=== PATIENT | female | born 1940 | race Hispanic/Latino ===

== ENCOUNTER 2017-12-13 08:56 | Observation (INO) | payer BC, MEDICARE ==
[2017-12-13] MEDS ORDERED: Sodium Chloride 0.9% 1,000 ML IV STA (09:29)
[2017-12-13 09:59] LABS: BASO # 0.1 K/uL (0.0-0.2); BASO % 0.7 % (0.0-2.0); EOS % 0.6 % (0.0-4.0); LYMPH # 0.3 K/uL (1.0-4.3); LYMPH % 4.6 % (20.0-40.0); MEAN CELL VOLUME 91.9 fl (81.0-99.0); MEAN CORPUSCULAR HEMOGLOBIN 30.5 pg (27.0-31.0); MEAN CORPUSCULAR HGB CONC 33.1 g/dL (33.0-37.0); MEAN PLATELET VOLUME 9.4 fl (7.2-11.7); MONO # 0.3 K/uL (0.0-0.8); MONO % 4.3 % (0.0-10.0); NEUT # 6.7 K/uL (1.8-7.0); NEUT % 89.8 % (50.0-75.0); PLATELET COUNT 162 K/uL (130-400); RBC 4.26 Mil/uL (3.80-5.20); RED CELL DISTRIBUTION WIDTH 13.1 % (11.5-14.5); WHITE BLOOD COUNT 7.5 K/uL (4.8-10.8)
[2017-12-13 10:02] LABS: PROTHROMBIN TIME 11.2 Seconds (9.8-13.1)
[2017-12-13 10:05] LABS: ALB/GLOB RATIO 1.3 (1.0-2.1); ALBUMIN 3.8 g/dL (3.5-5.0); ALT/SGPT 32 U/L (9-52); AST/SGOT 22 U/L (14-36); BLOOD UREA NITROGEN 16 mg/dl (7-17); CALCIUM 9.8 mg/dL (8.4-10.2); GFR NON-AFRICAN AMERICAN > 60
--- NOTE | 2017-12-13 10:14 | RAD ---
HISTORY: Syncope COMPARISON: 10/17/2012. FINDINGS: LUNGS: The lungs are hyperinflated and there is peribronchial thickening with chronic changes in both lungs. No focal consolidation. PLEURA: No significant pleural effusion identified, no pneumothorax apparent. CARDIOVASCULAR: Normal. OSSEOUS STRUCTURES: No significant abnormalities. VISUALIZED UPPER ABDOMEN: Normal. OTHER FINDINGS: None. IMPRESSION: No active pulmonary disease. COPD.
--- NOTE | 2017-12-13 10:26 | ED PDOC ---
Syncope/Near Syncope/Dizziness Time Seen by Provider: 12/13/17 09:18 Chief Complaint (Nursing): Syncope Chief Complaint (Provider): Syncope History Per: Patient History/Exam Limitations: no limitations Additional Complaint(s): Pt states she took Imodium this AM and one episode of diarrhea, went outside to wait for taxi and had sudden syncopal episode, no prodromal symptoms. Denies CP , palpitations, SOB, BRENNAN, paresthesias, weakness, BRENNAN. Pt c/o nausea at present, no vomiting, no abdominal pain. Past Medical History Reviewed: Nursing Documentation, Vital Signs Vital Signs: Last Vital Signs Temp 98.3 F 12/13/17 09:09 Pulse 56 L 12/13/17 09:09 Resp 16 12/13/17 09:09 BP 116/67 12/13/17 09:09 Pulse Ox 99 12/13/17 09:09 - Medical History PMH: Anemia, HTN - Family History Family History: States: Unknown Family Hx - Living Arrangements Living Arrangements: Alone - Social History Current smoker - smoking cessation education provided: No Alcohol: None - Immunization History Hx Tetanus Toxoid Vaccination: No Hx Influenza Vaccination: No Hx Pneumococcal Vaccination: No - Home Medications Home Medications: Ambulatory Orders Medication Instructions Recorded Aspirin [Ecotrin] 81 mg PO DAILY 12/13/17 Diltiazem HCl [Diltiazem 24Hr ER] 120 mg PO DAILY 12/13/17 Ergocalciferol (Vitamin D2) 50,000 unit PO QWK 12/13/17 [Vitamin D2] Ferrous Sulfate 325 mg PO BID 12/13/17 Losartan [Cozaar] 50 mg PO DAILY 12/13/17 Dicyclomine [Bentyl] 10 mg PO TID #30 cap 12/15/17 Pantoprazole [Protonix] 40 mg PO DAILY #30 ect 12/15/17 - Allergies Allergies/Adverse Reactions: Allergies Allergy/AdvReac Type Severity Reaction Status Date / Time No Known Allergies Allergy Verified 12/13/17 09:09 Review of Systems Constitutional: Negative for: Fever, Chills Eyes: Negative for: Vision Change Cardiovascular: Negative for: Chest Pain, Palpitations Respiratory: Negative for: Cough, Shortness of Breath Gastrointestinal: Positive for: Nausea, Constipation. Negative for: Vomiting, Abdominal Pain, Diarrhea Genitourinary Female: Negative for: Dysuria, Hematuria Musculoskeletal: Negative for: Neck Pain, Back Pain Skin: Negative for: Rash, Lesions Neurological: Negative for: Weakness, Numbness, Incoordination, Change in Speech , Confusion, Seizures, Altered Mental Status, Headache, Dizziness Physical Exam - Reviewed Nursing Documentation Reviewed: Yes Vital Signs Reviewed: Yes - Physical Exam Appears: Positive for: Well, No Acute Distress Head Exam: Negative for: ATRAUMATIC (Superficial abrasion L parietal scalp, no deformity) Skin: Positive for: Normal Color, Warm, Dry Eye Exam: Positive for: Normal appearance, EOMI, PERRL Neck: Positive for: Normal, Painless ROM, Supple. Negative for: Limited ROM, Pain On Movement Of Neck Cardiovascular/Chest: Positive for: Bradycardia. Negative for: Irregularly Irregular Respiratory: Positive for: Normal Breath Sounds. Negative for: Rales, Rhonchi, Wheezing Gastrointestinal/Abdominal: Positive for: Normal Exam, Bowel Sounds, Soft. Negative for: Tenderness Back: Positive for: Normal Inspection, L CVA Tenderness, R CVA Tenderness Extremity: Positive for: Normal ROM, Other (Superficial abrasion L anterior arm) . 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 Negative for: Motor/Sensory Deficits, Aphasia, Facial Droop - Laboratory Results Result Diagrams: 12/14/17 05:55 12/14/17 05:55 - ECG Interpretation Of ECG: Sinus lilo @ 53, IRBBB. O2 Sat by Pulse Oximetry: 99 Pulse Ox Interpretation: Normal Medical Decision Making Medical Decision Makin yo female with syncope. - labs - EKG - CXR - CT head - [facility] Accession No. : [id number] Patient Name / ID : GABRIEL BARNES / [id number] Exam Date : 12/13/2017 09:30:09 ( Approved ) Study Comment : Sex / Age : F / 77Y Creator : Apoorva Mandujano MD Dictator : Apoorva Mandujano MD Installment Loan Collector : Concrete Mixer : Apoorva Mandujano MD Approver2 : Report Date : 12/13/2017 10:13:24 My Comment : HISTORY: Syncope COMPARISON: 10/17/2012. FINDINGS: LUNGS: The lungs are hyperinflated and there is peribronchial thickening with chronic changes in both lungs. No focal consolidation. PLEURA: No significant pleural effusion identified, no pneumothorax apparent. CARDIOVASCULAR: Normal. OSSEOUS STRUCTURES: No significant abnormalities. VISUALIZED UPPER ABDOMEN: Normal. OTHER FINDINGS: None. IMPRESSION: No active pulmonary disease. COPD. Accession No. : [id number] Patient Name / ID : GABRIEL BARNES / [id number] Exam Date : 12/13/2017 12:34:01 ( Approved ) Study Comment : Sex / Age : F / 77Y Creator : Apoorva Mandujano MD Dictator : Apoorva Mandujano MD Installment Loan Collector : Concrete Mixer : Apoorva Mandujano MD Approver2 : Report Date : 12/13/2017 12:55:58 My Comment : PROCEDURE: CT HEAD WITHOUT CONTRAST. HISTORY: Syncope COMPARISON: None available. TECHNIQUE: Axial computed tomography images were obtained through the head/brain without intravenous contrast. Radiation dose: Total exam DLP = 853.79 mGy-cm. This CT exam was performed using one or more of the following dose reduction techniques: Automated exposure control, adjustment of the mA and/or kV according to patient size, and/or use of iterative reconstruction technique. FINDINGS: HEMORRHAGE: No intracranial hemorrhage. BRAIN: There are mild chronic microangiopathic changes. There is no mass, mass effect or abnormal extra-axial fluid collection. VENTRICLES: There is moderate age-related global parenchymal volume loss and proportionate enlargement of the ventricles and cortical sulci. CALVARIUM: The skull base and calvarium are normal PARANASAL SINUSES: Predominantly clear. MASTOID AIR CELLS: Predominantly clear. OTHER FINDINGS: None. IMPRESSION: No acute intracranial abnormality. Mild chronic microangiopathic changes and moderate age-related global parenchymal volume loss. Old Disposition - Clinical Impression Clinical Impression: Syncope - Patient ED Disposition Is Patient to be Admitted: Yes - Disposition Disposition Time: 13:26 Condition: STABLE - Pt Status Changed To: Hospital Disposition Of: Inpatient - Admit Certification Admit to Inpatient:: After my assessment, the patient will require hospitalization for at least two midnights. This is because of the severity of symptoms shown, intensity of services needed, and/or the medical risk in this patient being treated as an outpatient. - POA Present On Arrival: Falls Or Trauma
[2017-12-13 10:59] LABS: EOSINOPHIL 1 % (0-7); LYMPHOCYTE 4 % (20-50); MONOCYTE 4 % (0-10); NEUTROPHIL 91 % (42-75); PLATELET ESTIMATE NORMAL (NORMAL); TOTAL CELLS COUNTED 100
--- NOTE | 2017-12-13 12:57 | CT ---
PROCEDURE: CT HEAD WITHOUT CONTRAST. HISTORY: Syncope COMPARISON: None available. TECHNIQUE: Axial computed tomography images were obtained through the head/brain without intravenous contrast. Radiation dose: Total exam DLP = 853.79 mGy-cm. This CT exam was performed using one or more of the following dose reduction techniques: Automated exposure control, adjustment of the mA and/or kV according to patient size, and/or use of iterative reconstruction technique. FINDINGS: HEMORRHAGE: No intracranial hemorrhage. BRAIN: There are mild chronic microangiopathic changes. There is no mass, mass effect or abnormal extra-axial fluid collection. VENTRICLES: There is moderate age-related global parenchymal volume loss and proportionate enlargement of the ventricles and cortical sulci. CALVARIUM: The skull base and calvarium are normal PARANASAL SINUSES: Predominantly clear. MASTOID AIR CELLS: Predominantly clear. OTHER FINDINGS: None. IMPRESSION: No acute intracranial abnormality. Mild chronic microangiopathic changes and moderate age-related global parenchymal volume loss. Old
[2017-12-13] MEDS ORDERED: Pneumococcal 23-Valent Vaccine IM ONE (17:36)
--- NOTE | 2017-12-13 17:37 | US ---
PROCEDURE: Duplex ultrasound of the carotid and vertebral arteries. HISTORY: syncope.sinus bradycardia COMPARISON: None available. TECHNIQUE: Grayscale and duplex Doppler evaluation of the cervical carotid and vertebral arteries were performed. The common carotid, carotid bifurcations and cervical ICA and proximal ECA were evaluated. The vertebral arteries were evaluated for gross patency and direction. FINDINGS: RIGHT CAROTID ARTERIES: Common Carotid Artery: Intimal thickening is present Maximal flow velocity of 85.6 cm/s. Carotid Bifurcation: Intimal thickening is present Internal Carotid Artery:Heterogeneous plaque formation. Considerable plaque identified in the proximal right ICA. Maximal flow velocity of 65.8 cm/s. External Carotid Artery (proximal branches): Normal. Maximal flow velocity of 69.1 cm/s. ICA/CCA Ratio: 0.9 LEFT CAROTID ARTERIES: Common Carotid Artery: Intimal thickening is present Maximal flow velocity of 70.9 cm/s. Carotid Bifurcation: Normal. Internal Carotid Artery:Heterogeneous plaque formation. Maximal flow velocity of 91.9 cm/s. External Carotid Artery (proximal branches): Normal. Maximal flow velocity of 80.6 cm/s. ICA/CCA Ratio: 1.4 VERTEBRAL ARTERIES: Right Vertebral Artery: Patent. Antegrade flow. Left Vertebral Artery: Patent. Antegrade flow. OTHER FINDINGS: None. IMPRESSION: Right ICA degree of stenosis: Less than 50% Left ICA degree of stenosis: Less than 50% Reference Internal Carotid Artery (ICA) Peak Systolic Velocity (PSV) for above: 1. Less than 50% stenosis less than 125 cm/s peak systolic velocity 2. 50-69% stenosis 125-230cm/s peak systolic velocity 3. Greater than 70% but less than near occlusion greater than 230 cm/s peak systolic velocity
--- NOTE | 2017-12-13 19:26 | CARD ---
APPROVED REPORT EXAM: Two-dimensional and M-mode echocardiogram with Doppler and color Doppler. Other Information Quality : GoodRhythm : NSR INDICATION Abnormal EKG/Arrhythmia Syncope 2D DIMENSIONS IVSd1.11 (0.7-1.1cm)LVDd4.39 (3.9-5.9cm) LVOT Diameter1.75 (1.8-2.4cm)PWd1.00 (0.7-1.1cm) IVSs1.51 (0.8-1.2cm)LVDs3.29 (2.5-4.0cm) FS (%) 25.0 %PWs1.31 (0.8-1.2cm) M-Mode DIMENSIONS Left Atrium (MM)4.74 (2.5-4.0cm)IVSd1.00 (0.7-1.1cm) Aortic Root3.29 (2.2-3.7cm)LVDd5.41 (4.0-5.6cm) Aortic Cusp Exc.1.88 (1.5-2.0cm)PWd1.00 (0.7-1.1cm) IVSs1.47 cmFS (%) 34 % LVDs3.56 (2.0-3.8cm)PWs1.26 cm Mitral Valve MV E Urqorjfq54.9cm/sMV DECEL [id number] A Lxwodjop17.9cm/s MV ERN32yzO/A ratio0.8MVA (PHT)2.82cm2 TDI Lateral E' Peak V8.96cm/sMedial E' Peak V6.36cm/sE/Lateral E'7.6 E/Medial E'10.7 Pulmonary Valve PV Peak Feaefcvp447.3cm/s Tricuspid Valve TR Peak Pgpahhcb627rm/sRAP LPRMZHAT03mpHxXS Peak Gr.25mmHg [id number] LEFT VENTRICLE The left ventricle is normal in size. There is normal left ventricular wall thickness. Left ventricle systolic function is mildly impaired. The Ejection Fraction is - 50%. There is generalized mild LV hypokinesia. Transmitral Doppler flow pattern is Grade I-abnormal relaxation pattern. No left ventricle thrombus noted on this study. There is no ventricular septal defect visualized. There is no left ventricular aneurysm. There is no mass noted in the left ventricle. RIGHT VENTRICLE The right ventricle is normal size. There is normal right ventricular wall thickness. The right ventricular systolic function is normal. ATRIA The left atrium is mildly dilated. There is no thrombus suspected in the left atrium. The right atrium is mildly dilated. The interatrial septum is intact with no evidence for an atrial septal defect. AORTIC VALVE The aortic valve is normal in structure. No aortic regurgitation is present. There is no aortic valvular stenosis. MITRAL VALVE The mitral valve is normal in structure. There is no evidence of mitral valve prolapse. There is no mitral valve stenosis. Mitral regurgitation is mild. TRICUSPID VALVE The tricuspid valve is normal in structure. There is mild to moderate tricuspid regurgitation. Right ventricular systolic pressure is estimated at 36 mmHg. There is no tricuspid valve prolapse or vegetation. There is no tricuspid valve stenosis. PULMONIC VALVE The pulmonary valve is normal in structure. There is trivial pulmonic valvular regurgitation. GREAT VESSELS The aortic root is normal in size. The IVC is normal in size and collapses >50% with inspiration. PERICARDIAL EFFUSION The pericardium appears normal. There is no pleural effusion. <Conclusion> The left ventricle is normal in size and wall thickness. Left ventricle systolic function is mildly impaired. The Ejection Fraction is - 50%. The left atrium and right atrium are mildly dilated. The mitral, aortic and tricuspid valves are normal. There is mild mitral regurgitation and mild to moderate tricuspid regurgitation.
--- NOTE | 2017-12-13 21:18 | CP.PCM.CON ---
History of Present Illness - History of Present Illness History of Present Illness: I was asked to see patient by Dr Pedersen. Patient is a 77 year old female with a history of HTN who presents with near syncope. Patient states she was walking when she had lightheadedness. She denies chest pain or palpitiatons. She presents to [facility] for further management. Review of Systems - Constitutional Constitutional: absent: As Per HPI, Anorexia, Chills, Daytime Sleepiness, Excessive Sweating, Fatigue, Fever, Frequent Falls, Headache, Increased Appetite , Lethargy, Malaise, Night Sweats, Snoring, Sleep Apnea, Weight Gain, Weight Loss, Weakness, Other - EENT Eyes: absent: As Per HPI, Blind Spots, Blurred Vision, Change in Vision, Decreased Night Vision, Diplopia, Discharge, Dry Eye, Exophthalmos, Floaters, Irritation, Itchy Eyes, Loss of Peripheral Vision, Pain, Photophobia, Requires Corrective Lenses, Sees Flashes, Spots in Vision, Tunnel Vision, Other Visual Disturbances, Loss of Vision, Other Ears: absent: As Per HPI, Decreased Hearing, Ear Discharge, Ear Pain, Tinnitus, Abnormal Hearing, Disequilibrium, Dizziness, Other Nose/Mouth/Throat: absent: As Per HPI, Epistaxis, Nasal Congestion, Nasal Discharge, Nasal Obstruction, Nasal Trauma, Nose Pain, Post Nasal Drip, Sinus Pain, Sinus Pressure, Bleeding Gums, Change in Voice, Dental Pain, Dry Mouth, Dysphagia, Halitosis, Hoarsness, Lip Swelling, Mouth Lesions, Mouth Pain, Odynophagia, Sore Throat, Throat Swelling, Tongue Swelling, Facial Pain, Neck Pain, Neck Mass, Other - Cardiovascular Cardiovascular: absent: As Per HPI, Acrocyanosis, Chest Pain, Chest Pain at Rest , Chest Pain with Activity, Claudication, Diaphoresis, Dyspnea, Dyspnea on Exertion, Edema, Irregular Heart Rhythm, Pain Radiating to Arm/Neck/Jaw, Leg Edema, Leg Ulcers, Lightheadedness, Orthopnea, Palpitations, Paroxysmal Nocturnal Dyspnea, Pedal Edema, Radiating Pain, Rapid Heart Rate, Slow Heart Rate, Syncope, Other - Respiratory Respiratory: absent: As Per HPI, Cough, Dyspnea, Hemoptysis, Dyspnea on Exertion , Wheezing, Snoring, Stridor, Pain on Inspiration, Chest Congestion, Excessive Mucous Production, Change in Mucous Color, Pain with Coughing, Other - Gastrointestinal Gastrointestinal: absent: As Per HPI, Abdominal Pain, Belching, Bloating, Change in Bowel Habits, Change in Stool Character, Coffee Ground Emesis, Constipation, Cramping, Diarrhea, Dyspepsia, Dysphagia, Early Satiety, Excessive Flatus, Fecal Incontinence, Heartburn, Hematemesis, Hematochezia, Loose Stools, Melena, Nausea, Odynophagia, Temesmus, Vomiting, Other - Genitourinary Genitourinary: absent: As Per HPI, Change in Urinary Stream, Difficulty Urinating, Dysuria, Flank Pain, Hematuria, Pyuria, Nocturia, Urinary Incontinence, Urinary Frequency, Urinary Hesitance, Urinary Urgency, Voiding Freq/Small Amts, Freq UTI, Hx Renal/Bladder Calculi, Hx /Renal Surgery, Bladder Distension, Other - Musculoskeletal Musculoskeletal: absent: As Per HPI, Abnormal Gait, Arthralgias, Atrophy, Back Pain, Deformity, Joint Swelling, Limited Range of Motion, Loss of Height, Muscle Cramps, Muscle Weakness, Myalgias, Neck Pain, Numbness, Radiating Pain into Limb, Stiffness, Tingling, Other - Integumentary Integumentary: absent: As Per HPI, Acne, Alopecia, Bleeding Lesions, Change in Hair, Change in Nails, Change in Pigmentation, Changing Lesions, Dry Skin, Erythema, Furuncle, Hirsutism, Lesions, New Lesions, Non-Healing Lesions, Photosensitivity, Pruritus, Rash, Skin Pain, Skin Ulcer, Sores, Striae, Swelling , Unusual Bruising, Wounds, Jaundice, Other - Neurological Neurological: absent: As Per HPI, Abnormal Gait, Abnormal Hearing, Abnormal Movements, Abnormal Speech, Behavioral Changes, Burning Sensations, Confusion, Convulsions, Disequilibrium, Dizziness, Numbness, Focal Weakness, Frequent Falls , Headaches, Lack of Coordination, Loss of Vision, Memory Loss, Paresthesias, Radicular Pain, Restless Legs, Sensory Deficit, Syncope, Tingling, Tremor, Vertigo, Weakness, Other Visual Disturbances, Other - Psychiatric Psychiatric: absent: As Per HPI, Abnormal Sleep Pattern, Anhedonia, Anxiety, Auditory Hallucinations, Behavioral Changes, Change in Appetite, Change in Libido, Confusion, Depression, Difficulty Concentrating, Hallucinations, Homicidal Ideation, Hopelessness, Irritability, Memory Loss, Mood Swings, Panic Attacks, Paranoia, Suicidal Ideation, Visual Hallucinations, Tactile Hallucinations, Other - Endocrine Endocrine: absent: As Per HPI, Change in Body Appearance, Change in Libido, Cold Intolorance, Deepening of Voice, Excessive Sweating, Fatigue, Flushing, Heat Intolorance, Increase in Ring/Shoe/Hat Size, Palpitations, Polydipsia, Polyphagia, Polyuria, Other - Hematologic/Lymphatic Hematologic: absent: As Per HPI, Easy Bleeding, Easy Bruising, Lymphadenopathy, Other Past Patient History - Past Social History Smoking Status: Current Some Days Smoker - CARDIAC Hx Cardiac Disorders: Yes - PULMONARY Hx Respiratory Disorders: No - NEUROLOGICAL Hx Neurological Disorder: No - HEENT Hx HEENT Problems: No - RENAL Hx Chronic Kidney Disease: No - ENDOCRINE/METABOLIC Hx Endocrine Disorders: No - HEMATOLOGICAL/ONCOLOGICAL Hx Blood Disorders: Yes - INTEGUMENTARY Hx Dermatological Problems: No - MUSCULOSKELETAL/RHEUMATOLOGICAL Hx Musculoskeletal Disorders: No Hx Falls: Yes - GASTROINTESTINAL Hx Gastrointestinal Disorders: No - GENITOURINARY/GYNECOLOGICAL Hx Genitourinary Disorders: No - PSYCHIATRIC Hx Substance Use: No - SURGICAL HISTORY Hx Surgeries: No - ANESTHESIA Hx Anesthesia: No Meds Allergies/Adverse Reactions: Allergies Allergy/AdvReac Type Severity Reaction Status Date / Time No Known Allergies Allergy Verified 12/13/17 09:09 - Medications Medications: Current Medications Acetaminophen (Tylenol 325mg Tab) 650 mg PO Q6 PRN PRN Reason: Pain, Mild (1-3) Acetaminophen (Tylenol 325mg Tab) 650 mg PO Q6 PRN PRN Reason: Fever >100.4 F Aspirin (Ecotrin) 81 mg PO DAILY [facility] Enoxaparin Sodium (Lovenox) 40 mg SC DAILY [facility] PRN Reason: Protocol Ferrous Sulfate (Feosol) 325 mg PO BID [facility] Losartan Potassium (Cozaar) 50 mg PO DAILY [facility] Physical Exam - Constitutional Appears: Non-toxic - Head Exam Head Exam: NORMAL INSPECTION - Eye Exam Eye Exam: Normal appearance - ENT Exam ENT Exam: Mucous Membranes Moist - Neck Exam Neck exam: Positive for: Normal Inspection - Respiratory Exam Respiratory Exam: NORMAL BREATHING PATTERN - Cardiovascular Exam Cardiovascular Exam: Bradycardia - GI/Abdominal Exam GI & Abdominal Exam: Normal Bowel Sounds - Rectal Exam Rectal Exam: Deferred - Extremities Exam Extremities exam: Negative for: pedal edema - Back Exam Back exam: NORMAL INSPECTION - Neurological Exam Neurological exam: Alert, Oriented x3 - Psychiatric Exam Psychiatric exam: Normal Affect - Skin Skin Exam: Normal Color Results - Vital Signs Recent Vital Signs: Last Vital Signs Temp 98.1 F 12/13/17 16:17 Pulse 55 L 12/13/17 16:17 Resp 20 12/13/17 16:17 BP 128/76 12/13/17 16:17 Pulse Ox 99 12/13/17 16:17 - Labs Result Diagrams: 12/14/17 05:55 12/14/17 05:55 Labs: Laboratory Results - last 24 hr 12/13/17 12/13/17 12/13/17 09:27 09:40 09:40 WBC 7.5 RBC 4.26 Hgb 13.0 Hct 39.2 MCV 91.9 MCH 30.5 MCHC 33.1 RDW 13.1 Plt Count 162 MPV 9.4 Neut % (Auto) 89.8 H Lymph % (Auto) 4.6 L Early % (Auto) 4.3 Eos % (Auto) 0.6 Baso % (Auto) 0.7 Neut # (Auto) 6.7 Lymph # (Auto) 0.3 L Early # (Auto) 0.3 Eos # (Auto) 0.0 Baso # (Auto) 0.1 Neutrophils % (Manual) 91 H Lymphocytes % (Manual) 4 L Monocytes % (Manual) 4 Eosinophils % (Manual) 1 Platelet Estimate Normal RBC Morphology Normal PT INR APTT Sodium 141 Potassium 3.6 Chloride 104 Carbon Dioxide 25 Anion Gap 16 BUN 16 Creatinine 0.9 Est GFR ( Amer) > 60 Est GFR (Non-Af Amer) > 60 POC Glucose (mg/dL) 105 Random Glucose 109 H Calcium 9.8 Phosphorus 3.2 Magnesium 2.2 Total Bilirubin 0.5 AST 22 ALT 32 Alkaline Phosphatase 80 Troponin I < 0.0120 Total Protein 6.7 Albumin 3.8 Globulin 3.0 Albumin/Globulin Ratio 1.3 12/13/17 09:40 WBC RBC Hgb Hct MCV MCH MCHC RDW Plt Count MPV Neut % (Auto) Lymph % (Auto) Early % (Auto) Eos % (Auto) Baso % (Auto) Neut # (Auto) Lymph # (Auto) Early # (Auto) Eos # (Auto) Baso # (Auto) Neutrophils % (Manual) Lymphocytes % (Manual) Monocytes % (Manual) Eosinophils % (Manual) Platelet Estimate RBC Morphology PT 11.2 INR 1.0 APTT 26.0 Sodium Potassium Chloride Carbon Dioxide Anion Gap BUN Creatinine Est GFR ( Amer) Est GFR (Non-Af Amer) POC Glucose (mg/dL) Random Glucose Calcium Phosphorus Magnesium Total Bilirubin AST ALT Alkaline Phosphatase Troponin I Total Protein Albumin Globulin Albumin/Globulin Ratio - EKG Data EKG Interpreted by: Myself Rate: Bradycardia Assessment & Plan (1) Syncope Assessment and Plan: no evidence of heart block. EKG reveals sinus bradycardia. Echo reveals EF 50% . Will hold AV germain radha. recommend outpatient event monitor and stress test. Status: Acute
--- NOTE | 2017-12-13 22:45 | CON ---
DATE: 12/13/2017 NEUROLOGY CONSULTATION CHIEF COMPLAINT: Syncope. HISTORY OF PRESENT ILLNESS: This is a 77-year-old woman with history of hypertension, anemia and history of IBS, was having diarrhea symptoms, took 2 Imodiums together and felt dizzy and lightheaded, and went to wait outside for taxi and had the syncopal episode. She denied any syncopal episodes or seizures in the past. No changes in sense, vision, taste or smell. No focal change in neurological symptoms at this time. She is currently doing better. CT of the head showed no acute intracranial abnormality. Carotid Doppler showed no significant hemodynamic stenosis bilaterally. Her neuro exam is currently nonfocal at this time. PAST MEDICAL HISTORY: Anemia and hypertension. REVIEW OF SYSTEMS: A 14-point review of systems negative except in the HPI. SOCIAL HISTORY: No illicit drug use, smoking, or ETOH abuse. FAMILY HISTORY: Noncontributory. ALLERGIES: NO KNOWN DRUG ALLERGIES. MEDICATIONS: Reviewed by nurse reconciliation sheet. PHYSICAL EXAMINATION: VITAL SIGNS: Temperature of 98, pulse rate of 55, blood pressure 128/76, respiratory rate 20, and oxygen saturation 99% by room air. GENERAL: The patient is sitting up in bed, in no acute distress. HEENT: Atraumatic and normocephalic. PERRLA. Extraocular muscles intact. NECK: Supple. No JVD. No adenopathy noted. LUNGS: Clear to auscultation. No adventitious sounds. HEART: S1 and S2. Normal rate and rhythm. No murmurs, rubs, or gallops. ABDOMEN: Soft, nontender and nondistended. Bowel sounds are present. EXTREMITIES: No clubbing, no cyanosis. Peripheral pulses 2+ felt bilaterally. NEUROLOGIC: The patient is alert and oriented to person, place, month, and year. Speech is fluent without errors. Cranial nerves II through XII are intact. Motor exam: Moves all extremities equally. Toes are downgoing bilaterally. Sensory exam; Light touch, pinprick, proprioception, vibration are intact bilaterally. DTRs are 2+ throughout. Coordination; [id number] intact. Gait is deferred for now. LABORATORY DATA: Sodium 141, potassium 3.6, chloride 104, carbon dioxide 25, BUN of 16, creatinine 0.9, and random glucose of 109. ASSESSMENT AND PLAN: This is a 77-year-old woman with history hypertension, anemia and history of irritable bowel syndrome, took 2 Imodiums for episodes of diarrhea and took 2 Imodiums together and had a syncopal event and her syncope was cyclic secondary to vasovagal component from transient cerebral hypoperfusion to the brain from taking 2 Imodiums and volume depletion from underlying diarrhea. I understand she is currently stable. Recommend and avoid sudden movements and can follow up as an outpatient. Thank you for this consult. Manolo Martel MD
[2017-12-14 06:49] LABS: BASO # 0.1 K/uL (0.0-0.2); BASO % 1.1 % (0.0-2.0); EOS # 0.1 K/uL (0.0-0.7); HEMOGLOBIN 12.3 g/dL (12.0-16.0); LYMPH # 0.4 K/uL (1.0-4.3); LYMPH % 6.8 % (20.0-40.0); MEAN CELL VOLUME 91.2 fl (81.0-99.0); MEAN CORPUSCULAR HEMOGLOBIN 30.2 pg (27.0-31.0); MEAN CORPUSCULAR HGB CONC 33.2 g/dL (33.0-37.0); MONO # 0.4 K/uL (0.0-0.8); MONO % 7.3 % (0.0-10.0); NEUT # 4.8 K/uL (1.8-7.0); NEUT % 82.8 % (50.0-75.0); NRBC % 0.1 % (0.0-0.0); RBC 4.05 Mil/uL (3.80-5.20); RED CELL DISTRIBUTION WIDTH 13.5 % (11.5-14.5); WHITE BLOOD COUNT 5.8 K/uL (4.8-10.8)
[2017-12-14 07:03] LABS: ALB/GLOB RATIO 1.2 (1.0-2.1); ALBUMIN 3.4 g/dL (3.5-5.0); ALT/SGPT 33 U/L (9-52); AST/SGOT 26 U/L (14-36); BLOOD UREA NITROGEN 13 mg/dl (7-17); CALCIUM 9.4 mg/dL (8.4-10.2); GFR NON-AFRICAN AMERICAN > 60
--- NOTE | 2017-12-14 09:12 | CP.PCM.HP ---
History of Present Illness - History of Present Illness History of Present Illness: 77 yo ,f, PMhx/o HTN, COPD presents for evaluation of syncope. Patient passed out yesterday morning when going out from house to go to work. Patient denies prodromal symptoms and reports that early in the morning she had 2 non- bloddy diarrhea, moderate amount, associated with cramping abdominal pain and she took imodiun. Patient was witnessed by people in the street and she was told that not seizure activity was noted, no urinary incontinence. She denies subsequent headache, confusion, palpitation, chest pain, SOB, weakness, numbness , slurred speech, difficulty walking. Patient seen and examined bedside by Dr Chavarria. Patient asymptomatic today. PMD: Dr chavarria Present on Admission - Present on Admission Any Indicators Present on Admission: No History of DVT/PE: No History of Uncontrolled Diabetes: No Urinary Catheter: No Decubitus Ulcer Present: No Review of Systems - Review of Systems All systems: reviewed and no additional remarkable complaints except - Neurological Neurological: Syncope Past Patient History - Past Social History Smoking Status: Current Some Days Smoker - CARDIAC Hx Cardiac Disorders: Yes - PULMONARY Hx Respiratory Disorders: No - NEUROLOGICAL Hx Neurological Disorder: No - HEENT Hx HEENT Problems: No - RENAL Hx Chronic Kidney Disease: No - ENDOCRINE/METABOLIC Hx Endocrine Disorders: No - HEMATOLOGICAL/ONCOLOGICAL Hx Blood Disorders: Yes - INTEGUMENTARY Hx Dermatological Problems: No - MUSCULOSKELETAL/RHEUMATOLOGICAL Hx Musculoskeletal Disorders: No Hx Falls: Yes - GASTROINTESTINAL Hx Gastrointestinal Disorders: No - GENITOURINARY/GYNECOLOGICAL Hx Genitourinary Disorders: No - PSYCHIATRIC Hx Substance Use: No - SURGICAL HISTORY Hx Surgeries: No - ANESTHESIA Hx Anesthesia: No Meds Allergies/Adverse Reactions: Allergies Allergy/AdvReac Type Severity Reaction Status Date / Time No Known Allergies Allergy Verified 12/13/17 09:09 Physical Exam - Constitutional Appears: Non-toxic, No Acute Distress - Head Exam Head Exam: ATRAUMATIC, NORMOCEPHALIC - Eye Exam Eye Exam: Normal appearance - ENT Exam ENT Exam: Mucous Membranes Moist - Respiratory Exam Respiratory Exam: Clear to Auscultation Bilateral. absent: Rales, Rhonchi - Cardiovascular Exam Cardiovascular Exam: REGULAR RHYTHM, +S1, +S2 - GI/Abdominal Exam GI & Abdominal Exam: Normal Bowel Sounds, Soft. absent: Tenderness - Extremities Exam Extremities exam: Positive for: normal inspection. Negative for: pedal edema - Neurological Exam Neurological exam: Alert, Oriented x3 - Psychiatric Exam Psychiatric exam: Normal Affect, Normal Mood - Skin Skin Exam: Intact Results - Vital Signs Recent Vital Signs: Last Vital Signs Temp 98.4 F 12/14/17 07:59 Pulse 56 L 12/14/17 08:29 Resp 18 12/14/17 07:59 BP 110/56 L 12/14/17 08:29 Pulse Ox 98 12/14/17 07:59 - Labs Result Diagrams: 12/14/17 05:55 12/14/17 05:55 Labs: Laboratory Results - last 24 hr 12/13/17 12/13/17 12/13/17 09:27 09:40 09:40 WBC 7.5 RBC 4.26 Hgb 13.0 Hct 39.2 MCV 91.9 MCH 30.5 MCHC 33.1 RDW 13.1 Plt Count 162 MPV 9.4 Neut % (Auto) 89.8 H Lymph % (Auto) 4.6 L Spencer % (Auto) 4.3 Eos % (Auto) 0.6 Baso % (Auto) 0.7 Neut # (Auto) 6.7 Lymph # (Auto) 0.3 L Spencer # (Auto) 0.3 Eos # (Auto) 0.0 Baso # (Auto) 0.1 Neutrophils % (Manual) 91 H Lymphocytes % (Manual) 4 L Monocytes % (Manual) 4 Eosinophils % (Manual) 1 Platelet Estimate Normal RBC Morphology Normal PT INR APTT Sodium 141 Potassium 3.6 Chloride 104 Carbon Dioxide 25 Anion Gap 16 BUN 16 Creatinine 0.9 Est GFR ( Amer) > 60 Est GFR (Non-Af Amer) > 60 POC Glucose (mg/dL) 105 Random Glucose 109 H Calcium 9.8 Phosphorus 3.2 Magnesium 2.2 Total Bilirubin 0.5 AST 22 ALT 32 Alkaline Phosphatase 80 Troponin I < 0.0120 Total Protein 6.7 Albumin 3.8 Globulin 3.0 Albumin/Globulin Ratio 1.3 12/13/17 12/14/17 12/14/17 09:40 05:55 05:55 WBC 5.8 RBC 4.05 Hgb 12.3 Hct 36.9 MCV 91.2 MCH 30.2 MCHC 33.2 RDW 13.5 Plt Count 143 MPV 9.0 Neut % (Auto) 82.8 H Lymph % (Auto) 6.8 L Spencer % (Auto) 7.3 Eos % (Auto) 2.0 Baso % (Auto) 1.1 Neut # (Auto) 4.8 Lymph # (Auto) 0.4 L Spencer # (Auto) 0.4 Eos # (Auto) 0.1 Baso # (Auto) 0.1 Neutrophils % (Manual) Lymphocytes % (Manual) Monocytes % (Manual) Eosinophils % (Manual) Platelet Estimate RBC Morphology PT 11.2 INR 1.0 APTT 26.0 Sodium 141 Potassium 3.6 Chloride 106 Carbon Dioxide 26 Anion Gap 13 BUN 13 Creatinine 0.9 Est GFR ( Amer) > 60 Est GFR (Non-Af Amer) > 60 POC Glucose (mg/dL) Random Glucose 100 Calcium 9.4 Phosphorus Magnesium Total Bilirubin 0.6 AST 26 ALT 33 Alkaline Phosphatase 74 Troponin I Total Protein 6.2 L Albumin 3.4 L Globulin 2.8 Albumin/Globulin Ratio 1.2 Assessment & Plan - Assessment and Plan (Free Text) Plan: Assessment/Plan 1) Syncope May be vasovagal vs cardiac arrhythmia -EKG: sinus lilo HR: 54 -Echo, carotid US -orthostatic VS -Cardiology consult suggested -Neurology consult suggested 2) HTN -chronic 3) COPD -chronic 4) DVT Prophylaxis -Lovenox 40 mg sc daily
[2017-12-14] MEDS: Enoxaparin 40 mg Syringe SC SCH (09:47)
--- NOTE | 2017-12-14 17:29 | CARD ---
APPROVED REPORT EKG Measurement Heart [id number] ND [id number] <Conclusion> Sinus bradycardia Incomplete RBBB Left axis deviation Low voltage QRS Abnormal ECG
[2017-12-14] MEDS ORDERED: Oxycodone/Acetaminophen 5/325 mg Tab PO PRN (20:19)
--- NOTE | 2017-12-15 08:43 | CP.PCM.PN ---
Objective - Vital Signs/Intake and Output Vital Signs (last 24 hours): Temp Pulse Resp BP Pulse Ox 97.9 F 68 18 139/79 100 12/15/17 07:44 12/15/17 07:44 12/15/17 07:44 12/15/17 07:44 12/15/17 07:44 - Medications Medications: Current Medications Acetaminophen (Tylenol 325mg Tab) 650 mg PO Q6 PRN PRN Reason: Pain, Mild (1-3) Last Admin: 12/13/17 22:22 Dose: 650 mg Acetaminophen (Tylenol 325mg Tab) 650 mg PO Q6 PRN PRN Reason: Fever >100.4 F Aspirin (Ecotrin) 81 mg PO DAILY [facility] Last Admin: 12/14/17 08:28 Dose: 81 mg Dicyclomine HCl (Bentyl) 10 mg PO TID [facility] Enoxaparin Sodium (Lovenox) 40 mg SC DAILY [facility] PRN Reason: Protocol Last Admin: 12/14/17 09:47 Dose: Not Given Ferrous Sulfate (Feosol) 325 mg PO BID [facility] Last Admin: 12/14/17 18:47 Dose: 325 mg Losartan Potassium (Cozaar) 50 mg PO DAILY [facility] Last Admin: 12/14/17 08:29 Dose: 50 mg Oxycodone/Acetaminophen (Percocet 5/325 Mg Tab) 1 tab PO Q12 PRN PRN Reason: Pain, moderate (4-7) Stop: 12/17/17 21:01 Pantoprazole Sodium (Protonix Inj) 40 mg IVP DAILY [facility] - Labs Labs: 12/14/17 05:55 12/14/17 05:55 PT 11.2 Seconds (9.8-13.1) 12/13/17 09:40 INR 1.0 (0.9-1.2) 12/13/17 09:40 APTT 26.0 Seconds (25.6-37.1) 12/13/17 09:40
[2017-12-15] MEDS: Enoxaparin 40 mg Syringe SC SCH (08:49)
--- NOTE | 2017-12-15 14:57 | CP.PCM.DIS ---
Provider - Provider Date of Admission: 12/13/17 13:26 Attending physician: Valentino Chavarria MD Consults: Hotel Reservation Agent Dr Urban Time Spent in preparation of Discharge (in minutes): 20 Hospital Course - Lab Results Lab Results: Most Recent Lab Values WBC 5.8 K/uL (4.8-10.8) 12/14/17 05:55 RBC 4.05 Mil/uL (3.80-5.20) 12/14/17 05:55 Hgb 12.3 g/dL (12.0-16.0) 12/14/17 05:55 Hct 36.9 % (34.0-47.0) 12/14/17 05:55 MCV 91.2 fl (81.0-99.0) 12/14/17 05:55 MCH 30.2 pg (27.0-31.0) 12/14/17 05:55 MCHC 33.2 g/dL (33.0-37.0) 12/14/17 05:55 RDW 13.5 % (11.5-14.5) 12/14/17 05:55 Plt Count 143 K/uL (130-400) 12/14/17 05:55 MPV 9.0 fl (7.2-11.7) 12/14/17 05:55 Neut % (Auto) 82.8 % (50.0-75.0) H 12/14/17 05:55 Lymph % (Auto) 6.8 % (20.0-40.0) L 12/14/17 05:55 [place] % (Auto) 7.3 % (0.0-10.0) 12/14/17 05:55 Eos % (Auto) 2.0 % (0.0-4.0) 12/14/17 05:55 Baso % (Auto) 1.1 % (0.0-2.0) 12/14/17 05:55 Neut # (Auto) 4.8 K/uL (1.8-7.0) 12/14/17 05:55 Lymph # (Auto) 0.4 K/uL (1.0-4.3) L 12/14/17 05:55 [place] # (Auto) 0.4 K/uL (0.0-0.8) 12/14/17 05:55 Eos # (Auto) 0.1 K/uL (0.0-0.7) 12/14/17 05:55 Baso # (Auto) 0.1 K/uL (0.0-0.2) 12/14/17 05:55 Neutrophils % (Manual) 91 % (42-75) H 12/13/17 09:40 Lymphocytes % (Manual) 4 % (20-50) L 12/13/17 09:40 Monocytes % (Manual) 4 % (0-10) 12/13/17 09:40 Eosinophils % (Manual) 1 % (0-7) 12/13/17 09:40 Platelet Estimate Normal (NORMAL) 12/13/17 09:40 RBC Morphology Normal (NORMAL) 12/13/17 09:40 PT 11.2 Seconds (9.8-13.1) 12/13/17 09:40 INR 1.0 (0.9-1.2) 12/13/17 09:40 APTT 26.0 Seconds (25.6-37.1) 12/13/17 09:40 Sodium 141 mmol/l (132-148) 12/14/17 05:55 Potassium 3.6 MMOL/L (3.6-5.0) 12/14/17 05:55 Chloride 106 mmol/L (98-107) 12/14/17 05:55 Carbon Dioxide 26 mmol/L (22-30) 12/14/17 05:55 Anion Gap 13 (10-20) 12/14/17 05:55 BUN 13 mg/dl (7-17) 12/14/17 05:55 Creatinine 0.9 mg/dl (0.7-1.2) 12/14/17 05:55 Est GFR ( Amer) > 60 12/14/17 05:55 Est GFR (Non-Af Amer) > 60 12/14/17 05:55 POC Glucose (mg/dL) 98 mg/dL (65-110) 12/15/17 10:43 Random Glucose 100 mg/dL (65-105) 12/14/17 05:55 Calcium 9.4 mg/dL (8.4-10.2) 12/14/17 05:55 Phosphorus 3.2 mg/dl (2.5-4.5) 12/13/17 09:40 Magnesium 2.2 MG/DL (1.6-2.3) 12/13/17 09:40 Total Bilirubin 0.6 mg/dl (0.2-1.3) 12/14/17 05:55 AST 26 U/L (14-36) 12/14/17 05:55 ALT 33 U/L (9-52) 12/14/17 05:55 Alkaline Phosphatase 74 U/L (38-126) 12/14/17 05:55 Troponin I < 0.0120 ng/mL (0.00-0.120) 12/13/17 09:40 Total Protein 6.2 G/DL (6.3-8.2) L 12/14/17 05:55 Albumin 3.4 g/dL (3.5-5.0) L 12/14/17 05:55 Globulin 2.8 gm/dL (2.2-3.9) 12/14/17 05:55 Albumin/Globulin Ratio 1.2 (1.0-2.1) 12/14/17 05:55 TSH 3rd Generation 2.49 mIU/ML (0.46-4.68) 12/14/17 10:00 - Hospital Course Hospital Course: 77 yo ,f, PMhx/o HTN, COPD, IBS presents for evaluation of syncope after patient had 2 episodes of diarrhea and cramping abdominal pain. While on telemetry patient did not have dizziness of other epidode of syncope. Coardiologist consulted. Recommends stress test and holter outpatient. Echo: mild MR, ModTR. Carotid Us normal. Neuro evaluation reports vasovagal syncope. Patient did well with PT evaluation. Patient had 2 episodes of diarrhea yesterday. Patient seen by Dr chavarria, patient cleared to be discharged. Orthostatic vs normal. f/u with PMD, police manager. bentyl and protonix for home Diagnosis on discharge 1)Syncope resolved vasovagal 2) HTN -chronic 3) COPD -chronic Discharge Exam - Head Exam Head Exam: ATRAUMATIC, NORMOCEPHALIC - Eye Exam Eye Exam: Normal appearance - ENT Exam ENT Exam: Mucous Membranes Moist - Respiratory Exam Respiratory Exam: Clear to PA & Lateral. absent: Wheezes - Cardiovascular Exam Cardiovascular Exam: REGULAR RHYTHM, +S1, +S2 - GI/Abdominal Exam GI & Abdominal Exam: Normal Bowel Sounds, Soft. absent: Tenderness - Extremities Exam Extremities exam: normal inspection - Neurological Exam Neurological exam: Alert, Oriented x3 - Psychiatric Exam Psychiatric exam: Normal Affect, Normal Mood - Skin Skin Exam: Intact Discharge Plan - Discharge Medications Prescriptions: Dicyclomine [Bentyl] 10 mg PO TID #30 cap Pantoprazole [Protonix] 40 mg PO DAILY #30 ect - Follow Up Plan Condition: STABLE Disposition: HOME/ ROUTINE
[2017-12-15 15:37] VITALS: BP 128/72; PULSE 57; RESP 17; TEMP 97.9
[2017-12-17 11:19] VITALS: O2SAT 99
== END 2017-12-15 16:46 | disposition home or self-care (01) ==
LOC: H.ER 08:56 → H.ERHOLD 13:26 → INTOOBSV 13:26 → H.TEL 14:53
PROVIDERS: ADMIT Family Medicine; ATTEND Family Medicine
DX: R55 Syncope and collapse (principal); R00.1 Bradycardia, unspecified; D64.9 Anemia, unspecified; I10 Essential (primary) hypertension; J44.9 Chronic obstructive pulmonary disease, unspecified; K58.0 Irritable bowel syndrome with diarrhea; Z79.82 Long term (current) use of aspirin; Z87.891 Personal history of nicotine dependence
CPT/HCPCS: 36415; 70450; 71045; 80053; 81025; 82948; 83735; 84100; 84443; 84484; 85025; 85610; 85730; 87045; 87177; 87209; 93005; 93306; 93880; 96372; 96374; 96375; 96376; 97161; 97165; 99285; C9113; G0378; G8978; G8979; G8980; G8987; G8988; G8989; J1650; J2405; J7030